=== PATIENT | male | born 1970 | race Caucasian/White ===

== ENCOUNTER 2016-08-25 16:10 | Emergency (ER) | payer OTHER ==
[~2016-08-25] VITALS: Ht 177.8 cm; Wt 118.9 kg
[~2016-08-25 16:10] MED LIST: BUDE10.2 IH; FOLI1TAB16 PO; IPRA3AMP NEB; OXYC-323 PO; PROAIR HFA8.5 GM INH; methotrexate
--- NOTE | 2016-08-25 16:15 | PHYS DOC ---
Past Medical History Past Medical History: Arthritis, Asthma Additional Past Medical Histor: RA Past Surgical History: Other Additional Past Surgical Histo: left shoulder Alcohol Use: None Drug Use: None Adult General Chief Complaint Chief Complaint: ASTHMA HPI HPI Patient is a 45 year old male who presents with patient. He states his symptoms started about an hour prior to arrival. He tried his nebulizer at home and felt worse. He denies any productive cough fevers chills nausea or vomiting. He states he is chronically on prednisone for his rheumatoid arthritis and about 2-3 times a year he takes a prednisone burst for his asthma. Review of Systems Review of Systems Constitutional: Denies fever or chills [] Eyes: Denies change in visual acuity, redness, or eye pain [] HENT: Denies nasal congestion or sore throat [] Respiratory: Denies cough, positive for shortness of breath and wheezing Cardiovascular: No additional information not addressed in HPI [] GI: Denies abdominal pain, nausea, vomiting, bloody stools or diarrhea [] : Denies dysuria or hematuria [] Musculoskeletal: Denies back pain or joint pain [] Integument: Denies rash or skin lesions [] Neurologic: Denies headache, focal weakness or sensory changes [] Endocrine: Denies polyuria or polydipsia [] Current Medications Current Medications Current Medications Medications (Trade) Dose Ordered Sig/Missy Start Time Stop Time Status Last Admin Dose Admin Albuterol Sulfate (Ventolin Neb Soln) 2.5 mg 1X ONCE 08/25/16 16:30 08/25/16 16:31 DC 08/25/16 16:32 2.5 MG Albuterol/ Ipratropium (Duoneb) 3 ml 1X ONCE 08/25/16 17:15 08/25/16 17:16 DC 08/25/16 17:42 3 ML Methylprednisolone Sodium Succinate (SOLU-Medrol 125MG VIAL) 125 mg 1X ONCE 08/25/16 16:30 08/25/16 16:31 DC 08/25/16 16:30 125 MG Allergies Allergies Allergies Coded Allergies Type Severity Reaction Last Updated Verified No Known Drug Allergies 11/12/13 No Physical Exam Physical Exam Constitutional: Well developed, well nourished, no acute distress, non-toxic appearance. [] HENT: Normocephalic, atraumatic, bilateral external ears normal, oropharynx moist, no oral exudates, nose normal. [] Eyes: PERRLA, EOMI, conjunctiva normal, no discharge. [] Neck: Normal range of motion, no tenderness, supple, no stridor. [] Cardiovascular:Heart rate regular rhythm, no murmur [] Lungs & Thorax: Bilateral breath sounds decreased with moderate expiratory wheezing Abdomen: Bowel sounds normal, soft, no tenderness, no masses, no pulsatile masses. [] Skin: Warm, dry, no erythema, no rash. [] Back: No tenderness, no CVA tenderness. [] Extremities: No tenderness, no cyanosis, no clubbing, ROM intact, no edema. [] Neurologic: Alert and oriented X 3, normal motor function, normal sensory function, no focal deficits noted. [] Psychologic: Affect normal, judgement normal, mood normal. [] Current Patient Data Vital Signs Vital Signs Date Time Temp Pulse Resp B/P (MAP) Pulse Ox O2 Delivery O2 Flow Rate FiO2 08/25/16 18:19 106 20 139/80 (99) 99 Room Air 08/25/16 16:26 98.3 98.3 EKG EKG [] Radiology/Procedures Radiology/Procedures Chest x-ray did not show any focal consolidations, pneumothorax, bony abnormalities or foreign bodies, as interpreted by me. Impressions: Asthma exacerbation Course & Med Decision Making Course & Med Decision Making Pertinent Labs and Imaging studies reviewed. (See chart for details) Presented with wheezing after 2 breathing treatments and 125 Solu-Medrol his breathing has improved substantially. He feels better. He is being discharged home with prednisone for 5 days. Return precautions given his agreeable plan and is in stable condition. Dragon Disclaimer Dragon Disclaimer This electronic medical record was generated, in whole or in part, using a voice recognition dictation system. Departure Departure Impression: Primary Impression: Asthma exacerbation Disposition: 01 HOME, SELF-CARE Condition: STABLE Referrals: NO PCP (PCP) Patient Instructions: Asthma, Adult Additional Instructions: You're seen for your asthma exacerbation. It got better with breathing treatments and steroids. Your being discharged with prednisone for the next 4 days. Use your inhaler as needed. Return ER for worsening breathing, shortness of breath, chest pain, fevers, productive cough or other concerns. Scripts Prednisone (PREDNISONE) 50 Mg Tablet 1 TAB PO DAILY, #5 TAB Prov: CINDY PADGETT MD 08/25/16 CINDY PADGETT MD Aug 25, 2016 16:15
[2016-08-25] MEDS ORDERED: methylPREDNISolone SOD SUCC PF 125 MG/2 ML VIAL. IV ONE (16:30)
[2016-08-25] MEDS ORDERED: ALBUTEROL SULFATE 2.5 MG/3 ML NEBU. NEB ONE (16:30)
[2016-08-25] MEDS ORDERED: IPRATRPIUM/ALBUTEROL 0.5/2.5MG 3 ML NEBU. NEB ONE (17:15)
[2016-08-25 18:50] VITALS: BP 146/83
[2016-08-25] MEDS ORDERED: PRED50TA PO (19:06)
--- NOTE | 2016-08-26 08:29 | RAD ---
Indication wheezing. Shortness of breath. A single view of the chest was obtained. Comparison is made to a study 11 months earlier. The heart and pulmonary vessels appear normal. The lungs are clear. There is no pleural fluid or pneumothorax. There has not been a significant change compared to the previous exam. IMPRESSION: No acute or focal process. No significant change
== END 2016-08-25 19:22 | disposition home or self-care (01) ==
LOC: ER 16:10
DX: J45.901 Unspecified asthma with (acute) exacerbation (principal); M19.90 Unspecified osteoarthritis, unspecified site
CPT/HCPCS: 71010; 94250; 94640; 96374; 99284; J2930; J7620

== ENCOUNTER 2019-10-05 09:41 | Emergency (ER) | payer SELFPAY ==
[~2019-10-05] VITALS: Ht 177.8 cm; Wt 100.0 kg
[~2019-10-05 09:41] MED LIST changes: +ALBU2.5V8 INH; -IPRA3AMP NEB; +IPRA3AMP29 NEB; -OXYC-323 PO; +OXYC1TAB15 PO; +PRED50TA PO; -PROAIR HFA8.5 GM INH
[2019-10-05 10:00] VITALS: BP 158/91
--- NOTE | 2019-10-05 10:38 | RAD ---
CHEST AP ONLY 10/05/2019 10:22 AM INDICATION: Cough, history of asthma COMPARISON: 08/25/2016 TECHNIQUE: Portable frontal view of the chest is provided. FINDINGS: The cardiomediastinal silhouette is within normal limits. Lungs are clear. There are no significant pleural effusions. There is no pulmonary vascular congestion. No pneumothorax. No suspicious osseous abnormality. IMPRESSION: There is no acute cardiopulmonary process. Electronically signed by: Farhana Bronson MD (10/05/2019 10:35 AM) [facility]
[2019-10-05] MEDS ORDERED: AZIT250T PO (11:47)
[2019-10-05] MEDS ORDERED: PRED20TA PO (11:47)
--- NOTE | 2019-10-05 11:47 | PHYS DOC ---
Past Medical History Past Medical History: Arthritis, Asthma Additional Past Medical Histor: RA Past Surgical History: Other Additional Past Surgical Histo: left shoulder, LEFT FOOT Smoking Status: Never Smoker Alcohol Use: None Drug Use: None General Adult EDM: Chief Complaint: ASTHMA HPI: HPI: Patient is a 49-year-old asthmatic who presents with a two-week history of cough congestion. He states he has been coughing up purulent appearing sputum. He does not smoke seems to be allergic in nature. He is been on steroids and nebulizers at home without relief. [] Review of Systems: Review of Systems: Constitutional: Subjective fever [] Eyes: Denies change in visual acuity. [] HENT: Denies nasal congestion or sore throat. [] Respiratory: Denies cough or shortness of breath. [] Cardiovascular: Denies chest pain or edema. [] GI: Denies abdominal pain, nausea, vomiting, bloody stools or diarrhea. [] : Denies dysuria. [] Musculoskeletal: Denies back pain or joint pain. [] Integument: Denies rash. [] Neurologic: Denies headache, focal weakness or sensory changes. [] Endocrine: Denies polyuria or polydipsia. [] Lymphatic: Denies swollen glands. [] Psychiatric: Denies depression or anxiety. [] Heart Score: Risk Factors: Risk Factors: DM, Current or recent (<one month) smoker, HTN, HLP, family his tory of CAD, obesity. Risk Scores: Score 0 - 3: 2.5% MACE over next 6 weeks - Discharge Home Score 4 - 6: 20.3% MACE over next 6 weeks - Admit for Clinical Observation Score 7 - 10: 72.7% MACE over next 6 weeks - Early Invasive Strategies Allergies: Allergies: Allergies Coded Allergies Type Severity Reaction Last Updated Verified No Known Drug Allergies 11/12/13 No Physical Exam: PE: Constitutional: Well developed, well nourished, no acute distress, non-toxic appearance. [] HENT: Normocephalic, atraumatic, bilateral external ears normal, oropharynx moist, no oral exudates, nose normal. [] Eyes: PERRLA, EOMI, conjunctiva normal, no discharge. [] Neck: Normal range of motion, no tenderness, supple, no stridor. [] Cardiovascular:Heart rate regular rhythm, no murmur [] Lungs & Thorax: Scattered wheezes throughout both lungs no rales [] Abdomen: Bowel sounds normal, soft, no tenderness, no masses, no pulsatile masses. [] Skin: Warm, dry, no erythema, no rash. [] Back: No tenderness, no CVA tenderness. [] Extremities: No tenderness, no cyanosis, no clubbing, ROM intact, no edema. [] Neurologic: Alert and oriented X 3, normal motor function, normal sensory func tion, no focal deficits noted. [] Psychologic: Affect normal, judgement normal, mood normal. [] Current Patient Data: Vital Signs: Vital Signs Date Time Temp Pulse Resp B/P (MAP) Pulse Ox O2 Delivery O2 Flow Rate FiO2 10/05/19 10:00 98.3 105 18 158/91 (113) 94 Room Air 98.3 EKG: EKG: [] Radiology/Procedures: Radiology/Procedures: [] Impression: REASON: cough, HX ASTHMA PROCEDURE: CHEST AP ONLY CHEST AP ONLY 10/05/2019 10:22 AM INDICATION: Cough, history of asthma COMPARISON: 08/25/2016 TECHNIQUE: Portable frontal view of the chest is provided. FINDINGS: The cardiomediastinal silhouette is within normal limits. Lungs are clear. There are no significant pleural effusions. There is no pulmonary vascular congestion. No pneumothorax. No suspicious osseous abnormality. IMPRESSION: There is no acute cardiopulmonary process. Course & Med Decision Making: Course & Med Decision Making Pertinent Labs and Imaging studies reviewed. (See chart for details) [] Dragon Disclaimer: Dragon Disclaimer: This electronic medical record was generated, in whole or in part, using a voice recognition dictation system. Departure Departure Impression: Primary Impression: Asthma exacerbation Qualified Codes: J45.51 - Severe persistent asthma with (acute) exacerbation Disposition: HOME, SELF-CARE Condition: STABLE Referrals: UNKNOWN PCP NAME (PCP) Patient Instructions: Acute Bronchitis, Bronchitis Additional Instructions: Return to the emergency department with any new or concerning symptoms Scripts Prednisone (PREDNISONE) 20 Mg Tablet 3 TAB PO DAILY PRN for COUGH for 7 Days, #21 TAB Prov: STEPHEN GREEN DO 10/05/19 Azithromycin (ZITHROMAX) 250 Mg Tablet 1 PKG PO UD for bronchitis, #6 TAB Take 2 tablets on day 1 and then 1 tablet each day for the next 4 days as directed Prov: STEPHEN GREEN DO 10/05/19 Justicifation of Admission Dx: Justifications for Admission: Justification of Admission Dx: No STEPHEN GREEN DO Oct 05, 2019 11:47
== END 2019-10-05 12:20 | disposition home or self-care (01) ==
LOC: ER 09:41
DX: J45.51 Severe persistent asthma with (acute) exacerbation (principal)
CPT/HCPCS: 71045; 99283

== ENCOUNTER 2019-10-23 22:13 | Emergency (ER) | payer SELFPAY ==
[~2019-10-23] VITALS: Ht 177.8 cm; Wt 118.1 kg
[~2019-10-23 22:13] MED LIST changes: +AZIT250T PO; +PRED20TA PO
--- NOTE | 2019-10-23 22:26 | PHYS DOC ---
Past Medical History Past Medical History: Arthritis, Asthma Additional Past Medical Histor: RA Past Surgical History: Other Additional Past Surgical Histo: left shoulder, LEFT FOOT Smoking Status: Never Smoker Alcohol Use: None Drug Use: None General Adult EDM: Chief Complaint: CHEST PAIN HPI: HPI: Patient is a 49 year old male who presents with complaints of chest pain. Patient reports that around noon today he began to have a sharp pain in the chest located left of center, nonradiating and intermittent. Patient reports the pain is sharp and and trains lasting a second or 2 and then returning after a brief hiatus. Patient also reports that he has been having troubles with his asthma. He reports an increase in cough, some mild chills today without any fever. Reports he is not short of breath, but does complain of some mild nausea without vomiting, he denies melena or hematochezia. Patient reports he has had his cough for 1 month denies any upper respiratory congestion, postnasal drip, or purulent nasal discharge. Review of Systems: Review of Systems: Constitutional: Denies fever or chills. [] Eyes: Denies change in visual acuity. [] HENT: Denies nasal congestion or sore throat. [] Respiratory: See HPI. [] Cardiovascular: See HPI. [] GI: Denies abdominal pain, nausea, vomiting, bloody stools or diarrhea. [] : Denies dysuria complains of urinary frequency. [] Musculoskeletal: Denies back pain or joint pain. [] Integument: Denies rash. [] Neurologic: Denies headache, focal weakness or sensory changes. [] Endocrine: Denies polyuria or polydipsia. [] Lymphatic: Denies swollen glands. [] Psychiatric: Denies depression or anxiety. [] Heart Score: HEART Score for Chest Pain: HEART Score for Chest Pain Response (Comments) Value History Slighlty/Non-Suspicious 0 ECG Normal 0 Age < 45 0 Risk Factors No Risk Factors 0 Troponin < Normal Limit 0 Total 0 Risk Factors: Risk Factors: DM, Current or recent (<one month) smoker, HTN, HLP, family history of CAD, obesity. Risk Scores: Score 0 - 3: 2.5% MACE over next 6 weeks - Discharge Home Score 4 - 6: 20.3% MACE over next 6 weeks - Admit for Clinical Observation Score 7 - 10: 72.7% MACE over next 6 weeks - Early Invasive Strategies Allergies: Allergies: Allergies Coded Allergies Type Severity Reaction Last Updated Verified No Known Drug Allergies 11/12/13 No Physical Exam: PE: Constitutional: Well developed, obese, well nourished, no acute distress, non- toxic appearance. [] HENT: Normocephalic, atraumatic, bilateral external ears normal, nasal mucosa with pale appearance without exudative changes, posterior oropharynx with eryt keyshawn and cobblestoning, moist mucous membranes. [] Eyes: PERRLA, EOMI, conjunctiva normal, no discharge. [] Neck: Normal range of motion, no tenderness, supple, no stridor. No JVD, no bruit [] Cardiovascular:Heart rate regular rhythm, no murmur [] Lungs & Thorax: Wheezing with forced expiration and a increase in expiratory time. Occasional wheeze noted bilaterally, no accessory muscle use, no respiratory distress no change to percussion [] Abdomen: Bowel sounds normal, soft, no tenderness, no masses, no pulsatile masses. [] Skin: Warm, dry, no erythema, no rash. [] Back: No tenderness, no CVA tenderness. [] Extremities: No tenderness, no cyanosis, no clubbing, ROM intact, no edema. [] Neurologic: Alert and oriented X 3, normal motor function, normal sensory function, no focal deficits noted. [] Psychologic: Affect normal, judgement normal, mood normal. [] EKG: EK bpm, normal sinus rhythm, normal axis, normal intervals, normal EKG [] Radiology/Procedures: Radiology/Procedures: Normal chest x-ray [] Course & Med Decision Making: Course & Med Decision Making Pertinent Labs and Imaging studies reviewed. (See chart for details) 0052-the patient was seen and reevaluated. I reviewed all laboratory and x-ray data with the patient. At this time there is no evidence of an exigent medical or surgical problem other than that of an asthma exacerbation. In addition I think he was suffering from noncardiac chest pain which may be related to GERD. Patient at this time is chest pain-free. I discussed treatment plan, reasons to return and need for follow-up. [] Dragon Disclaimer: Dragno Disclaimer: This electronic medical record was generated, in whole or in part, using a voice recognition dictation system. Departure Departure Impression: Primary Impression: Asthma exacerbation Qualified Codes: J45.21 - Mild intermittent asthma with (acute) exacerbation Additional Impression: Non-cardiac chest pain Disposition: HOME, SELF-CARE Condition: IMPROVED Referrals: UNKNOWN PCP NAME (PCP) Patient Instructions: Asthma, Adult Scripts Prednisone (PREDNISONE ) 10 Mg Tablet 10 MG PO DAILY, #30 TAB 0 Refills Ondansetron STD asthma exacerbation 4 pills daily for 3 days, then 3 pills daily for 3 days, then 2 pills daily for 3 days, then 1 pill daily for 3 days then off Prov: DALILA DUMONT MD 10/24/19 Justicifation of Admission Dx: Justifications for Admission: Justification of Admission Dx: No DALILA DUMONT MD Oct 23, 2019 22:26
[2019-10-23] MEDS ORDERED: ALBUTEROL SULFATE 2.5 MG/3 ML NEBU. CONT NEB ONE (23:00)
[2019-10-23] MEDS ORDERED: IPRATROPIUM BROMIDE 0.5 MG/2.5 ML NEBU. NEB ONE (23:00)
[2019-10-23] MEDS ORDERED: methylPREDNISolone SOD SUCC PF 125 MG/2 ML VIAL. IV ONE (23:00)
[2019-10-23] MEDS ORDERED: ALPRAZolam 0.5 MG TABLET PO ONE (23:00)
[2019-10-23 23:03] LABS: BASO # 0.1 x10^3/uL (0.0-0.2); BASO % 1 % (0-3); EOS # 0.4 x10^3/uL (0.0-0.7); EOS % 4 % (0-3); HEMATOCRIT 43.1 % (39.0-53.0); HEMOGLOBIN 14.6 g/dL (13.0-17.5); LYMPH # 1.8 x10^3/uL (1.0-4.8); LYMPH % 20 % (24-48); MEAN CORPUSCULAR HEMOGLOBIN 28 pg (25-35); MEAN CORPUSCULAR HGB CONC 34 g/dL (31-37); MEAN CORPUSCULAR VOLUME 84 fL (79-100); MONO # 0.5 x10^3/uL (0.0-1.1); MONO % 5 % (0-9); NEUT % 70 % (31-73); PLATELET COUNT 247 x10^3/uL (140-400); RED BLOOD COUNT 5.16 x10^6/uL (4.30-5.70); RED CELL DISTRIBUTION WIDTH 14.6 % (11.5-14.5); WHITE BLOOD COUNT 8.6 x10^3/uL (4.0-11.0)
[2019-10-23 23:09] LABS: CALCIUM 9.4 mg/dL (8.5-10.1); CREATININE 0.8 mg/dL (0.7-1.3); GFR 103.6; POTASSIUM 3.6 mmol/L (3.5-5.1)
[2019-10-23 23:10] LABS: PROTHROMBIN TIME PATIENT 12.1 SEC (11.7-14.0)
[2019-10-23 23:15] LABS: ALBUMIN 3.3 g/dL (3.4-5.0); ALBUMIN/GLOBULIN RATIO 0.8 (1.0-1.7); TOTAL BILIRUBIN 0.2 mg/dL (0.2-1.0); TOTAL PROTEIN 7.2 g/dL (6.4-8.2)
[2019-10-23 23:27] LABS: BILIRUBIN,URINE NEGATIVE (NEG); CLARITY,URINE CLEAR; COLOR,URINE YELLOW; NITRITE,URINE NEGATIVE (NEG); PROTEIN,URINE NEGATIVE (NEG-TRACE); UROBILINOGEN,URINE 0.2 mg/dL (0.2 mg/dL)
[2019-10-23 23:30] LABS: BACTERIA,URINE 0 /HPF (0-FEW); RBC,URINE 0 /HPF (0-2); WBC,URINE 0 /HPF (0-4)
--- NOTE | 2019-10-23 23:31 | RAD ---
Exam: Chest one view INDICATION: Cough TECHNIQUE: Frontal view of the chest Comparisons: 10/05/2019 FINDINGS: The cardiomediastinal silhouette and pulmonary vessels are within normal limits. The lung and pleural spaces are clear. IMPRESSION: No acute cardiopulmonary process. Electronically signed by: Alejandro Manley MD (10/23/2019 11:28 PM) [id number]
[2019-10-24] MEDS ORDERED: PRED-220 PO (00:59)
[2019-10-24 01:30] VITALS: BP 152/89
--- NOTE | 2019-10-24 09:27 | EKG ---
[facility] [address] [place] [address] Test Date: 2019-10-23 Test Time: 22:19:34 Pat Name: ANTONY FERREIRA Department: Room: Gender: M Environmental Health Specialist: : 1970 Requested By: DALILA DUMONT Order Number: [id number] Reading MD: Measurements Intervals [place] Rate: 89 P: 40 [place]: 134 QRS: 46 QRSD: 78 T: 28 QT: 350 QTc: 427 Interpretive Statements SINUS RHYTHM NO SPECIFIC ECG ABNORMALITIES RI6.01 No previous ECG available for comparison
== END 2019-10-24 01:34 | disposition home or self-care (01) ==
LOC: ER 22:13
DX: J45.21 Mild intermittent asthma with (acute) exacerbation (principal); R07.89 Other chest pain; R05 Cough; R11.0 Nausea; M19.90 Unspecified osteoarthritis, unspecified site; J45.909 Unspecified asthma, uncomplicated; Z98.890 Other specified postprocedural states
CPT/HCPCS: 36415; 71045; 80053; 81001; 84484; 85025; 85610; 93005; 94644; 96374; 99285; J2930; J7613; J7644

== ENCOUNTER 2020-07-19 17:56 | Emergency (ER) | payer SELFPAY ==
[~2020-07-19] VITALS: Ht 177.8 cm; Wt 113.0 kg
[~2020-07-19 17:56] MED LIST changes: +PRED-220 PO
[2020-07-19] MEDS ORDERED: methylPREDNISolone SOD SUCC PF 125 MG/2 ML VIAL. IV ONE (19:30)
[2020-07-19] MEDS ORDERED: ALBUTEROL SULFATE 2.5 MG/3 ML NEBU. NEB ONE (19:30)
--- NOTE | 2020-07-19 19:35 | EKG ---
[facility] [address] [place] [address] Test Date: 2020-07-19 Test Time: 19:06:52 Pat Name: ANTONY FERREIRA Department: Room: Gender: M Director State Pharmacy: : 1970 Requested By: NANDO JHAVERI Order Number: [id number] Reading MD: Measurements Intervals [place] Rate: 86 P: 52 [place]: 154 QRS: 52 QRSD: 82 T: 26 QT: 346 QTc: 417 Interpretive Statements SINUS RHYTHM OTHERWISE NORMAL ECG RI6.02 No previous ECG available for comparison
--- NOTE | 2020-07-19 19:50 | PHYS DOC ---
Past Medical History Past Medical History: Anxiety, Arthritis, Asthma, Bronchitis Additional Past Medical Histor: RA (NANDO JHAVERI CAST IRON DIPPER) Past Surgical History: Other Additional Past Surgical Histo: left shoulder, LEFT FOOT (NANDO JHAVERI CAST IRON DIPPER) Smoking Status: Never Smoker Alcohol Use: None Drug Use: None (NANDO JHAVERI CAST IRON DIPPER) General Adult EDM: Chief Complaint: ASTHMA HPI: HPI: Patient is a 49 year old male who presents with 2 days of fever, generalized weakness, fatigue, shortness of breath and generalized chest pain or chest pressure. He states he does have asthma and he has been using his inhalers that he thinks his nebulizers are outdated. He states is not really working. States he has been laying in bed and sleeping a lot. He states he does not think he has been around any biopsies been sick that he knows of. He states that he will get a fever and then will break and he will break out into a sweat. Patient denies dizziness, syncope, headache, vision change, numbness or tingling, focal weakness, abdominal pain, vomiting, diarrhea although he said he had diarrhea a couple days prior to today. Patient has history of asthma, anxiety, arthritis, bronchitis. Patient denies smoking. (NANDO JHAVERI CAST IRON DIPPER) Review of Systems: Review of Systems: Constitutional: + fever or chills. [] Eyes: Denies change in visual acuity. [] HENT: Denies nasal congestion or sore throat. [] Respiratory: + cough or +shortness of breath. [] Cardiovascular: + chest pain or denies edema. [] GI: Denies abdominal pain, nausea, vomiting, bloody stools or diarrhea. [] : Denies dysuria. [] Musculoskeletal: Denies back pain or joint pain. +generalized weakness and + fatigue[] Integument: Denies rash. [] Neurologic: Denies headache, focal weakness or sensory changes. [] Endocrine: Denies polyuria or polydipsia. [] Lymphatic: Denies swollen glands. [] Psychiatric: Denies depression or anxiety. [] (NANDO JHAVERI CAST IRON DIPPER) Heart Score: C/O Chest Pain: Yes HEART Score for Chest Pain: HEART Score for Chest Pain Response (Comments) Value History Slighlty/Non-Suspicious 0 ECG Normal 0 Age >45 - < 65 1 Risk Factors 1 or 2 Risk Factors 1 Troponin < Normal Limit 0 Total 2 Risk Factors: Risk Factors: DM, Current or recent (<one month) smoker, HTN, HLP, family history of CAD, obesity. Risk Scores: Score 0 - 3: 2.5% MACE over next 6 weeks - Discharge Home Score 4 - 6: 20.3% MACE over next 6 weeks - Admit for Clinical Observation Score 7 - 10: 72.7% MACE over next 6 weeks - Early Invasive Strategies (NANDO JHAVERI APRN) Current Medications: Current Medications Medications (Trade) Dose Ordered Sig/Missy Start Time Stop Time Status Last Admin Dose Admin Albuterol Sulfate (Ventolin Neb Soln) 2.5 mg 1X ONCE 07/19/20 19:30 07/19/20 19:31 DC Methylprednisolone Sodium Succinate (SOLU-Medrol 125MG VIAL) 125 mg 1X ONCE 07/19/20 19:30 07/19/20 19:31 DC (NANDO JHAVERI APRN) Allergies: Allergies: Allergies Coded Allergies Type Severity Reaction Last Updated Verified No Known Drug Allergies 11/12/13 No (NANDO JHAVERI APRN) Physical Exam: PE: Constitutional: Well developed, well nourished, no acute distress, non-toxic appearance. [] HENT: Normocephalic, atraumatic, bilateral external ears normal, oropharynx moist, no oral exudates, nose normal. [] Eyes: PERRLA, EOMI, conjunctiva normal, no discharge. [] Neck: Normal range of motion, no tenderness, supple, no stridor. [] Cardiovascular:Heart rate regular rhythm, no murmur [] Lungs & Thorax: Bilateral breath sounds upper clear but lower wheezing to auscultation [] Abdomen: Bowel sounds normal, soft, no tenderness, no masses, no pulsatile masses. [] Skin: Warm, dry, no erythema, no rash. [] Back: No tenderness, no CVA tenderness. [] Extremities: No tenderness, no cyanosis, no clubbing, ROM intact, no edema. [] Neurologic: Alert and oriented X 3, normal motor function, normal sensory function, no focal deficits noted. [] Psychologic: Affect normal, judgement normal, mood normal. [] (NANDO JHAVERI APRN) Current Patient Data: Vital Signs: Vital Signs Date Time Temp Pulse Resp B/P (MAP) Pulse Ox O2 Delivery O2 Flow Rate FiO2 07/19/20 18:58 96 22 169/87 (114) 96 Room Air 07/19/20 18:46 98.4 98.4 ([facility]) EKG: EK and read by Dr Weathers as Sinus Rhythm and no STEMI ([facility]) Radiology/Procedures: Radiology/Procedures: [] Impression: [address] [address] IMAGING REPORT Signed PATIENT: ANTONY FERREIRACOUNT: [id number] : 1970 LOCATION: ER AGE: 49 SEX: M EXAM STATUS: REG ER ORD. PHYSICIAN: NANDO JHAVERI APRN REASON: SOA PROCEDURE: PORTABLE CHEST 1V Exam: Chest one view INDICATION: Short of air TECHNIQUE: Frontal view of the chest Comparisons: 11/12/2019 FINDINGS: The cardiomediastinal silhouette and pulmonary vessels are within normal limits. The lung and pleural spaces are clear. IMPRESSION: No acute cardiopulmonary process. Electronically signed by: Alejandro Richards MD (07/19/2020 7:50 PM) [facility] DICTATED and SIGNED BY: ALEJANDRO RICHARDS MD DATE: 07/19/20 [id number] [address] IMAGING REPORT Signed PATIENT: ANTONY FERREIRA JACCOUNT: [id number] : 1970 LOCATION: ER AGE: 49 SEX: M EXAM STATUS: REG ER ORD. PHYSICIAN: NANDO JHAVERI APRN REASON: pain, vomiting, chest pain, soa, OMNI 350 100 ML IV PROCEDURE: CT ANGIO CHEST W ABD PEL W/ Exam: CT of chest, abdomen and pelvis with contrast INDICATION: Pain, vomiting TECHNIQUE: Sequential axial images through the chest, abdomen and pelvis obtained following the administration 100 mL of Omni 350 IV contrast. Sagittal and coronal reformatted images were reconstructed from the axial data and reviewed. 3-D reformatted images were reconstructed from the axial data and reviewed. Exposure: One or more of the following in the visualized dose reduction techniques were utilized for this examination: 1. Automated exposure control 2. Adjustment of the MA and/or KV according to patient size 3. Use of iterative of reconstructive technique Comparisons: Chest x-ray same day FINDINGS: Visualized portions of the thyroid are unremarkable. No enlarged mediastinal lymph nodes are identified. Heart size is normal. No pericardial effusion. Mild coronary artery calcification. Thoracic aorta has a normal course and caliber. Pulmonary artery is not enlarged. No pulmonary embolus identified within the main, lobar or segmental pulmonary arteries. Airways are patent. No consolidation or pneumothorax. No suspicious lung nodules. No pleural effusion or thickening. Diffuse hepatic steatosis. Spleen, pancreas, gallbladder and adrenals are unremarkable. No perinephric inflammation or hydronephrosis. No renal or ureteral calculi are identified. Bladder is partially distended and appears thin-walled. Prostate is not enlarged. Large and small bowel are unremarkable. Appendix is normal. No free intra- abdominal air or fluid. No obstruction. Abdominal aorta has a normal course and caliber. Abdominal vasculature is patent. No enlarged intra-abdominal lymph nodes are identified. No suspicious osseous lesions or acute fractures. IMPRESSION: 1. No acute process identified within the abdomen or pelvis. 2. Diffuse hepatic steatosis. 3. No pulmonary embolus identified within the main, lobar or segmental pulmonary arteries. Electronically signed by: Alejandro Richards MD (07/19/2020 10:02 PM) [facility] DICTATED and SIGNED BY: ALEJANDRO RICHARDS MD DATE: 07/19/20 [id number] (NANDO JHAVERI APRN) Course & Med Decision Making: Course & Med Decision Making Pertinent Labs and Imaging studies reviewed. (See chart for details) COVID-19 CRITERIA: The patient was evaluated during the global COVID-19 pandemic, and that diagnosis was suspected/considered upon their initial presentation. Their evaluation, treatment and testing was consistent with current guidelines for patients who present with complaints or symptoms that may be related to COVID-19. See HPI. Alert and oriented x4. Ambulatory with a steady gait. Speaks in full clear sentences. Lungs and upper lobes are clear but in lower lobes bilaterally are diminished and have some wheezes. Abdomen is soft and nontender. Afebrile in the ED. No respiratory distress. Blood work is unremarkable. CT abdomen pelvis and chest show no acute findings. Urinalysis shows no infection or dehydration. Patient is p.o. challenge successfully. Patient after reassessment still has no abdominal tenderness and abdomen is still soft. He still denies any dizziness, headache, abdominal pain or nausea at this time. Patient states that he is doing a lot better and his chest is no longer tight. He states he is breathing easier. Patient remains 96 to 98% on room air. Respirations are 18 a minute. Patient is moving air better with reassessment. Patient is tolerating p.o. Patient states he is wanting to go home. Patient still has some inspiratory expiratory wheezing. I will give him 1 more breathing treatment prior to leaving. [] (NANDO JHAVERI APRN) Course & Med Decision Making I oversaw on the above date of service of this patient and discussed the care with the ORDER DISPATCHER. I agree with the findings, plan of care, and disposition as documented. Electronically signed, Jossue Weathers DO (JOSSUE WEATHERS DO) Juan Disclaimer: Juan Disclaimer: This electronic medical record was generated, in whole or in part, using a voice recognition dictation system. (NANDO JHAVERI APRN) Departure Departure Impression: Primary Impression: Asthma exacerbation Qualified Codes: J45.21 - Mild intermittent asthma with (acute) exacerbation Additional Impression: Person under investigation for COVID-19 Disposition: HOME / SELF CARE / HOMELESS Condition: STABLE Referrals: UNKNOWN PCP NAME (PCP) Patient Instructions: Asthma, Adult Additional Instructions: Follow-up with your primary care provider since hospital. Near the Covid test will come back in 24 to 48 hours. Use your inhalers and your nebulizers. If at any point he felt like they are not working any return to the emergency room. Take Tylenol for any kind of fever. Rest but make sure you are pushing fluids to stay hydrated. Scripts Albuterol Sulfate (ALBUTEROL SULFATE NEB SOLN) 2.5 Mg/3 Ml Vial.neb 1 VIAL NEB PRN Q4HRS, #50 VIAL Prov: NANDO JHAVERI APRN 07/19/20 Albuterol Sulfate (PROAIR HFA INHALER) 8.5 Gm Hfa.aer.ad 2 PUFF IH PRN Q4-6HRS PRN for wheezing for 21 Days, #1 INHALER 0 Refills Prov: NANDO JHAVERI APRN 07/19/20 Methylprednisolone (MEDROL) 4 Mg Tab.ds.pk 1 PKG PO UD, #1 PKG Prov: NANDO JHAVERI APRN 07/19/20 NANDO JHAVERI APRN July 19, 2020 19:50 JOSSUE WEATHERS DO July 22, 2020 18:51
--- NOTE | 2020-07-19 19:53 | RAD ---
Exam: Chest one view INDICATION: Short of air TECHNIQUE: Frontal view of the chest Comparisons: 11/12/2019 FINDINGS: The cardiomediastinal silhouette and pulmonary vessels are within normal limits. The lung and pleural spaces are clear. IMPRESSION: No acute cardiopulmonary process. Electronically signed by: Alejandro Manley MD (07/19/2020 7:50 PM) [facility]
[2020-07-19 19:55] LABS: BASO # 0.1 x10^3/uL (0.0-0.2); BASO % 1 % (0-3); EOS # 0.2 x10^3/uL (0.0-0.7); EOS % 2 % (0-3); HEMATOCRIT 46.8 % (39.0-53.0); HEMOGLOBIN 16.2 g/dL (13.0-17.5); LYMPH % 19 % (24-48); MEAN CORPUSCULAR HEMOGLOBIN 29 pg (25-35); MEAN CORPUSCULAR HGB CONC 35 g/dL (31-37); MEAN CORPUSCULAR VOLUME 84 fL (79-100); MONO # 0.8 x10^3/uL (0.0-1.1); MONO % 7 % (0-9); NEUT # 7.7 x10^3/uL (1.8-7.7); NEUT % 71 % (31-73); PLATELET COUNT 325 x10^3/uL (140-400); RED BLOOD COUNT 5.58 x10^6/uL (4.30-5.70); RED CELL DISTRIBUTION WIDTH 13.9 % (11.5-14.5); WHITE BLOOD COUNT 10.9 x10^3/uL (4.0-11.0)
[2020-07-19] MEDS ORDERED: ONDANSETRON PF 4 MG/2 ML VIAL. IVP ONE (20:00)
[2020-07-19] MEDS ORDERED: IV NORMAL SALINE 1000ML BAG 1,000 ML IV ONE (20:00)
[2020-07-19 20:34] LABS: CALCIUM 9.3 mg/dL (8.5-10.1); CREATININE 0.9 mg/dL (0.7-1.3); GFR 90.4; POTASSIUM 4.3 mmol/L (3.5-5.1)
[2020-07-19 20:39] LABS: ALBUMIN 4.3 g/dL (3.4-5.0); ALBUMIN/GLOBULIN RATIO 1.3 (1.0-1.7); TOTAL BILIRUBIN 0.2 mg/dL (0.2-1.0); TOTAL PROTEIN 7.7 g/dL (6.4-8.2)
[2020-07-19 21:13] LABS: PROTHROMBIN TIME PATIENT 12.7 SEC (11.7-14.0)
[2020-07-19] MEDS ORDERED: CONTRAST GIVEN. MC PRN (21:30)
[2020-07-19] MEDS ORDERED: IOHEXOL 350 MG/ML 100 ML VIAL. IV ONE (21:30)
[2020-07-19 21:55] LABS: BILIRUBIN,URINE NEGATIVE (NEG); CLARITY,URINE CLEAR; COLOR,URINE YELLOW; NITRITE,URINE NEGATIVE (NEG); PROTEIN,URINE NEGATIVE (NEG-TRACE); UROBILINOGEN,URINE 0.2 mg/dL (0.2 mg/dL)
--- NOTE | 2020-07-19 22:04 | RAD ---
Exam: CT of chest, abdomen and pelvis with contrast INDICATION: Pain, vomiting TECHNIQUE: Sequential axial images through the chest, abdomen and pelvis obtained following the admin istration 100 mL of Omni 350 IV contrast. Sagittal and coronal reformatted images were reconstructed from the axial data and reviewed. 3-D reformatted images were reconstructed from the axial data and r eviewed. Exposure: One or more of the following in the visualized dose reduction techniques were utilized for this examination: 1. Automated exposure control 2. Adjustment of the MA and/or KV according to patient size 3. Use of iterative of reconstructive technique Comparisons: Chest x-ray same day FINDINGS: Visualized portions of the thyroid are unremarkable. No enlarged mediastinal lymph nodes are identifi ed. Heart size is normal. No pericardial effusion. Mild coronary artery calcification. Thoracic aorta has a normal course and caliber. Pulmonary artery is not enlarged. No pulmonary embolus identified withi n the main, lobar or segmental pulmonary arteries. Airways are patent. No consolidation or pneumothorax. No suspicious lung nodules. No pleural effusion or thickening. Diffuse hepatic steatosis. Spleen, pancreas, gallbladder and adrenals are unremarkable. No perinephric inflammation or hydronephrosis. No renal or ureteral calculi are identified. Bladder is partially distended and appears thin-walled. Prostate is not enlarged. Large and small bowel are unremarkable. Appendix is normal. No free intra-abdominal air or fluid. No obstruction. Abdominal aorta has a normal course and caliber. Abdominal vasculature is patent. No enlarged intra-abdominal lymph nodes are identified. No suspicious osseous lesions or acute fractures. IMPRESSION: 1. No acute process identified within the abdomen or pelvis. 2. Diffuse hepatic steatosis. 3. No pulmonary embolus identified within the main, lobar or segmental pulmonary arteries. Electronically signed by: Alejandro Manley MD (07/19/2020 10:02 PM) [facility]
[2020-07-19 22:05] LABS: BACTERIA,URINE 0 /HPF (0-FEW); RBC,URINE 0 /HPF (0-2); WBC,URINE 0 /HPF (0-4)
[2020-07-19] MEDS ORDERED: ALBU2.5V5 NEB (22:22)
[2020-07-19] MEDS ORDERED: ALBU2.5V8 IH (22:22)
[2020-07-19] MEDS ORDERED: METH4TAB2 PO (22:22)
[2020-07-19 22:26] VITALS: BP 157/81
--- NOTE | 2020-07-20 13:29 | NUR ---
IP: Informed pt of negative COVID test. Pt verbalized understanding.
== END 2020-07-19 23:00 | disposition home or self-care (01) ==
LOC: ER 17:56
DX: J45.21 Mild intermittent asthma with (acute) exacerbation (principal); Z20.822 Contact with and (suspected) exposure to COVID-19
CPT/HCPCS: 36415; 71045; 71275; 74177; 80053; 81001; 83605; 83880; 84484; 85025; 85379; 85610; 93005; 94640; 96361; 96374; 96375; 99285; J2405; J2930; J7030; J7613; Q9967; U0003; U0005

== ENCOUNTER 2021-01-22 10:46 | Emergency (ER) | payer SELFPAY ==
[~2021-01-22] VITALS: Ht 175.3 cm; Wt 84.0 kg
[~2021-01-22 10:46] MED LIST changes: +ALBU2.5V5 NEB; +ALBU2.5V8 IH; +METH4TAB2 PO
--- NOTE | 2021-01-22 11:55 | PHYS DOC ---
Past Medical History Past Medical History: Anxiety, Arthritis, Asthma, Bronchitis Additional Past Medical Histor: RA (NANDO JHAVERI APRN) Past Surgical History: No Surgical History Additional Past Surgical Histo: left shoulder, LEFT FOOT (NANDO JHAVERI APRN) Smoking Status: Never Smoker Alcohol Use: None Drug Use: None (NANDO JHAVERI APRN) General Adult EDM: Chief Complaint: SHORTNESS OF BREATH HPI: HPI: Patient is a 50 year old female who presents with 2 days of shortness of air, cough, chills. He states is been using his inhaler more often than usual. Not vaccinated for Covid. History of asthma, bronchitis, anxiety and RA. He states he is having body aches but he always has body aches because of his RA. Denies headache, dizziness, chest pain, abdominal pain, nausea, vomiting, diarrhea, numbness or tingling. (NANDO JHAVERI APRN) Review of Systems: Review of Systems: Constitutional: Denies fever or +chills. [] Eyes: Denies change in visual acuity. [] HENT: Denies nasal congestion or sore throat. [] Respiratory: + cough or +shortness of breath. [] Cardiovascular: Denies chest pain or edema. [] GI: Denies abdominal pain, nausea, vomiting, bloody stools or diarrhea. [] : Denies dysuria. [] Musculoskeletal: Denies back pain or joint pain. + Body aches [] Integument: Denies rash. [] Neurologic: Denies headache, focal weakness or sensory changes. [] Endocrine: Denies polyuria or polydipsia. [] Lymphatic: Denies swollen glands. [] Psychiatric: Denies depression or anxiety. [] (NANDO JHAVERI APRN) Heart Score: C/O Chest Pain: No (NANDO JHAVERI APRN) Current Medications: Current Medications Medications (Trade) Dose Ordered Sig/Missy Start Time Stop Time Status Last Admin Dose Admin Albuterol Sulfate (Ventolin Neb Soln) 2.5 mg 1X ONCE 01/22/21 12:00 01/22/21 12:01 Methylprednisolone Sodium Succinate (SOLU-Medrol 125MG VIAL) 80 mg 1X ONCE 01/22/21 12:00 01/22/21 12:01 (NANDO JHAVERI HAND COKE DRAWER) Allergies: Allergies: Allergies Coded Allergies Type Severity Reaction Last Updated Verified No Known Drug Allergies 01/22/21 No (NANDO JHAVERI APRN) Physical Exam: PE: Constitutional: Well developed, well nourished, no acute distress, non-toxic appearance. [] HENT: Normocephalic, atraumatic, bilateral external ears normal, oropharynx moist, no oral exudates, nose normal. [] Eyes: PERRLA, EOMI, conjunctiva normal, no discharge. [] Neck: Normal range of motion, no tenderness, supple, no stridor. [] Cardiovascular:Heart rate regular rhythm, no murmur [] Lungs & Thorax: Bilateral upper breath sounds clear lower diminished to auscultation [] Abdomen: Bowel sounds normal, soft, no tenderness, no masses, no pulsatile masses. [] Skin: Warm, dry, no erythema, no rash. [] Back: No tenderness, no CVA tenderness. [] Extremities: No tenderness, no cyanosis, no clubbing, ROM intact, no edema. [] Neurologic: Alert and oriented X 3, normal motor function, normal sensory function, no focal deficits noted. [] Psychologic: Affect normal, judgement normal, mood normal. [] ([facility]RAW[facility]) Current Patient Data: Vital Signs: Vital Signs Date Time Temp Pulse Resp B/P (MAP) Pulse Ox O2 Delivery O2 Flow Rate FiO2 01/22/21 11:25 98.1 86 24 153/99 (117) Room Air 98.1 ([facility] HAND COKE DRAW[facility]) EKG: EK and read by Dr. Gant is sinus rhythm and no STEMI [address] Gant is sinus rhythm and no STEMI ([facility] HAND COKE DRAWER) Radiology/Procedures: Radiology/Procedures: [] Impression: [facility] [address] [place] [address] IMAGING REPORT Signed PATIENT: ANTONY FERREIRA JACCOUNT: [id number] : 1970 LOCATION: ER AGE: 50 SEX: M EXAM STATUS: REG ER ORD. PHYSICIAN: NANDO JHAVERI APRN REASON: SOA, COUGH PROCEDURE: PORTABLE CHEST 1V Exam Date: 01/22/2021 11:40 AM XR CHEST 1V Indication: Reason: SOA, COUGH / Spl. Instructions: / History: . Comparison: July 19, 2020 FINDINGS/ IMPRESSION: The cardiac silhouette and pulmonary vasculature are within normal limits. There is no focal consolidation, pleural effusion or pneumothorax. The visualized osseous structures are intact. Electronically signed by: Laury Pal MD (01/22/2021 11:58 AM) [id number] DICTATED and SIGNED BY: LAURY PAL MD DATE: 01/22/21 [id number] (NANDO JHAVERI APRN) Course & Med Decision Making: Course & Med Decision Making Pertinent Labs and Imaging studies reviewed. (See chart for details) COVID-19 CRITERIA: The patient was evaluated during the global COVID-19 pandemic, and that diagnosis was suspected/considered upon their initial presentation. Their evaluation, treatment and testing was consistent with current guidelines for patients who present with complaints or symptoms that may be related to COVID-19. See HPI. Alert and oriented x4. Ambulatory steady gait. Speaks in full clear sentences. Lungs are clear in upper lobes with diminished in lower lobes. Skin pink warm and dry. Patient was given Solu-Medrol and a breathing treatment. Patient's lungs are now inspiratory/ expiratory wheezes and he is moving air better. Patient still states he is feeling short of air. I have now ordered him a hour-long breathing treatment. Patient is feeling much better after the hour-long breathing treatment. His lungs are clear and the wheezes have resolved. Patient will be discharged home. [] (NANDO JHAVERI APRN) Course & Med Decision Making I have participated in the care of this patient and I have reviewed and agree with all pertinent clinical information above including history, exam, and recommendations. Jules Gant DO (JULES GANT DO) Juan Disclaimer: Juan Disclaimer: This electronic medical record was generated, in whole or in part, using a voice recognition dictation system. (NANDO JHAVERI APRN) COVID-19 Patient Risks: Age 65 or older: No Sign of co-morbidity: Yes Exp to person + for COVID: No Exp to PUI: No Travel from affected area: No Lower respiratory symptoms: Yes Fever: Yes Other: No (NANDO JHAVERI APRN) PPE Use: Full PPE with N95 mask or PAPR: Yes (NANDO JHAVERI APRN) Departure Departure Impression: Primary Impression: Asthma exacerbation Qualified Codes: J45.21 - Mild intermittent asthma with (acute) exacerbation Disposition: HOME / SELF CARE / HOMELESS Condition: STABLE Referrals: UNKNOWN PCP NAME (PCP) Patient Instructions: Asthma, Adult Additional Instructions: Follow-up with primary care provider if needed. Take medication as prescribed. If anything worsens return to the emergency room. Scripts Ipratropium/Albuterol Sulfate (DUONEB 0.5-3(2.5) MG/3 ML) 3 Ml Ampul.neb 3 ML NEB QID PRN for SHORTNESS OF BREATH, #30 EACH Prov: NANDO JHAVERI APRN 01/22/21 Methylprednisolone (MEDROL) 4 Mg Tab.ds.pk 1 PKG PO UD, #1 PKG Prov: NANDO JHAVERI APRN 01/22/21 Albuterol Sulfate (PROAIR HFA INHALER) 8.5 Gm Hfa.aer.ad 1 PUFF INH PRN Q6HRS PRN for SHORTNESS OF BREATH, #1 EACH 0 Refills Prov: NANDO JHAVERI APRN 01/22/21 NANDO JHAVERI APRN Jan 22, 2021 11:55 JULES GANT DO Jan 22, 2021 18:07
[2021-01-22] MEDS ORDERED: methylPREDNISolone SOD SUCC PF 125 MG/2 ML VIAL. IV ONE (12:00)
[2021-01-22] MEDS ORDERED: ALBUTEROL SULFATE 2.5 MG/3 ML NEBU. NEB ONE (12:00)
--- NOTE | 2021-01-22 12:00 | RAD ---
Exam Date: 01/22/2021 11:40 AM XR CHEST 1V Indication: Reason: SOA, COUGH / Spl. Instructions: / History: . Comparison: July 19, 2020 FINDINGS/ IMPRESSION: The cardiac silhouette and pulmonary vasculature are within normal limits. There is no focal consolidation, pleural effusion or pneumothorax. The visualized osseous structures are intact. Electronically signed by: Johny Pal MD (01/22/2021 11:58 AM) [id number]
[2021-01-22 12:15] LABS: BASO # 0.1 x10^3/uL (0.0-0.2); BASO % 1 % (0-3); EOS # 0.2 x10^3/uL (0.0-0.7); EOS % 2 % (0-3); HEMATOCRIT 44.2 % (39.0-53.0); HEMOGLOBIN 15.2 g/dL (13.0-17.5); LYMPH # 2.1 x10^3/uL (1.0-4.8); LYMPH % 18 % (24-48); MEAN CORPUSCULAR HEMOGLOBIN 28 pg (25-35); MEAN CORPUSCULAR HGB CONC 34 g/dL (31-37); MEAN CORPUSCULAR VOLUME 81 fL (79-100); MONO # 0.7 x10^3/uL (0.0-1.1); MONO % 6 % (0-9); NEUT # 8.3 x10^3/uL (1.8-7.7); NEUT % 73 % (31-73); PLATELET COUNT 364 x10^3/uL (140-400); RED BLOOD COUNT 5.47 x10^6/uL (4.30-5.70); RED CELL DISTRIBUTION WIDTH 13.4 % (11.5-14.5); WHITE BLOOD COUNT 11.4 x10^3/uL (4.0-11.0)
[2021-01-22 12:20] LABS: INFLUENZA A PATIENT NEGATIVE (NEGATIVE); INFLUENZA B PATIENT NEGATIVE (NEGATIVE)
[2021-01-22 12:26] LABS: CREATININE 0.8 mg/dL (0.7-1.3); GFR 103.2; POTASSIUM 3.9 mmol/L (3.5-5.1)
[2021-01-22 12:32] LABS: ALBUMIN 3.7 g/dL (3.4-5.0); ALBUMIN/GLOBULIN RATIO 0.8 (1.0-1.7); MAGNESIUM 2.2 mg/dL (1.8-2.4); TOTAL BILIRUBIN 0.2 mg/dL (0.2-1.0); TOTAL PROTEIN 8.3 g/dL (6.4-8.2)
[2021-01-22 12:41] LABS: BILIRUBIN,URINE NEGATIVE (NEG); CLARITY,URINE CLEAR; COLOR,URINE YELLOW; NITRITE,URINE NEGATIVE (NEG); PROTEIN,URINE NEGATIVE (NEG-TRACE); UROBILINOGEN,URINE 0.2 mg/dL (0.2 mg/dL)
[2021-01-22 12:56] LABS: BACTERIA,URINE 0 /HPF (0-FEW); RBC,URINE 0 /HPF (0-2); WBC,URINE 0 /HPF (0-4)
[2021-01-22] MEDS ORDERED: ALBUTEROL SULFATE 2.5 MG/3 ML NEBU. CONT NEB ONE (13:00)
[2021-01-22] MEDS ORDERED: ALBU2.5V8 INH (14:44)
[2021-01-22] MEDS ORDERED: IPRA3AMP29 NEB (14:44)
[2021-01-22] MEDS ORDERED: METH4TAB2 PO (14:44)
[2021-01-22 15:26] VITALS: BP 144/26
--- NOTE | 2021-01-22 18:06 | EKG ---
[facility] [address] [place] [address] Test Date: 2021-01-22 Test Time: 11:34:36 Pat Name: ANTONY FERREIRA Department: Room: Gender: M [employer] Ax Consultant: : 1970 Requested By: NANDO JHAVERI Order Number: [id number] Reading MD: Dylan Fish Measurements Intervals [place] Rate: 88 P: 59 [place]: 154 QRS: 50 QRSD: 80 T: 48 QT: 368 QTc: 449 Interpretive Statements SINUS RHYTHM OTHERWISE NORMAL ECG RI6.02 Compared to ECG 07/19/2020 19:06:52 No significant changes Electronically Signed On 01-25-2021 9:38:03 REHAB MANAGER by Dylan Fish
--- NOTE | 2021-01-23 01:51 | EKG ---
[facility] [address] [place] [address] Test Date: 2021-01-22 Test Time: 12:04:18 Pat Name: ANTONY FERREIRA Department: Room: Gender: M [employer] Tender: : 1970 Requested By: NANDO JHAVERI Order Number: [id number] Reading MD: Dylan Fish Measurements Intervals [place] Rate: 94 P: 90 [place]: 152 QRS: 50 QRSD: 80 T: 31 QT: 346 QTc: 438 Interpretive Statements SINUS RHYTHM NO SPECIFIC ECG ABNORMALITIES RI6.01 Compared to ECG 01/22/2021 11:34:36 No significant changes Electronically Signed On 01-25-2021 9:37:35 DAIRY [employer] FARM MANAGER by Dylan Fish
--- NOTE | 2021-01-25 11:35 | NUR ---
IP: Informed pt of negative covid test. Pt verbalized understanding.
== END 2021-01-22 15:26 | disposition home or self-care (01) ==
LOC: ER 10:46
DX: J45.21 Mild intermittent asthma with (acute) exacerbation (principal); Z20.822 Contact with and (suspected) exposure to COVID-19
CPT/HCPCS: 36415; 71045; 80053; 81001; 83735; 84484; 85025; 87426; 87804; 93005; 94640; 94644; 96374; 99285; J2930; J7613; U0003; U0005

== ENCOUNTER 2021-03-29 06:02 | Emergency (ER) | payer SELFPAY ==
[~2021-03-29] VITALS: Ht 177.8 cm; Wt 113.5 kg
--- NOTE | 2021-03-29 06:14 | PHYS DOC ---
Past Medical History Past Medical History: Anxiety, Arthritis, Asthma, Bronchitis Additional Past Medical Histor: RA Past Surgical History: No Surgical History Additional Past Surgical Histo: left shoulder, LEFT FOOT Smoking Status: Never Smoker Alcohol Use: None Drug Use: None General Adult HPI: HPI: Patient is a 50 year old male who presents with greater than 1 month history of cough with clear sputum, congestion, shortness of breath. He reports has been feeling worse over the past several days. He denies hemoptysis or purulent sputum production. He reports 2 to 3 days of fevers and chills. He reports headache, sore throat, myalgias and fatigue. He reports chest discomfort only with coughing, denies chest pressure or persistent chest pain. He denies lower extremity pain or swelling. He denies exertional dyspnea. He denies dizziness, diaphoresis, nausea, vomiting, abdominal pain. He reports that his father has the same symptoms as he does. The patient reports that he did receive a flu vaccine this year. He reports that he only received 1 dose of a COVID-vaccine in late 2019 but he did not receive the second vaccine, he has not received a booster. He was here on 01/22/2021 and had a negative COVID and influenza swab at that time. At that time, and during his ED work-up, he had an elevated D- dimer, he did not have a CT angiogram of the chest. He had an unremarkable chest x-ray. He was discharged home with oral prednisone. He reports that he is out of his Advair inhaler. He reports that he needs more albuterol nebulizer solution. He has been using his rescue inhaler more frequently today. Review of Systems: Review of Systems: Constitutional: Fevers, chills, myalgias, malaise Eyes: Denies change in visual acuity. [] HENT: Congestion, mild sore throat. Respiratory: Nonproductive cough, dyspnea, wheezing. Denies hemoptysis Cardiovascular: Denies chest pain or edema. [] GI: Denies abdominal pain, nausea, vomiting Musculoskeletal: Denies back pain or joint pain. Reports diffuse myalgias. Integument: Denies rash. [] Psychiatric: Denies depression or anxiety. [] Heart Score: C/O Chest Pain: No Risk Factors: Risk Factors: DM, Current or recent (<one month) smoker, HTN, HLP, family history of CAD, obesity. Risk Scores: Score 0 - 3: 2.5% MACE over next 6 weeks - Discharge Home Score 4 - 6: 20.3% MACE over next 6 weeks - Admit for Clinical Observation Score 7 - 10: 72.7% MACE over next 6 weeks - Early Invasive Strategies Allergies: Allergies: Allergies Coded Allergies Type Severity Reaction Last Updated Verified No Known Drug Allergies 01/22/21 No Physical Exam: PE: Constitutional: Well developed, well nourished, no acute distress, non-toxic appearance. [] HENT: Normocephalic, atraumatic, oropharynx is patent and clear, no exudate or erythema. Eyes: Conjunctiva normal, no discharge. [] Neck: Normal range of motion, no tenderness, supple, no stridor. Trachea is midline. No JVD Cardiovascular: Tachycardic, regular, +2 radial and +2 posterior tibial pulses bilaterally Lungs & Thorax: Coarse rhonchi bilaterally, no stridor. Bilateral, diffuse end expiratory wheezing noted. Frequent cough is noted. No tachypnea or retractions. He speaks in full and clear sentences. Abdomen: Abdomen is soft, nondistended, nontender to palpation Skin: Warm, dry, no erythema, no rash. [] Back: No tenderness, no CVA tenderness. [] Extremities: No tenderness, no cyanosis, no clubbing, ROM intact, no edema. No calf tenderness. Neurologic: Alert and oriented X 3, normal motor function, normal sensory function, no focal deficits noted. [] Psychologic: Affect normal, judgement normal, mood normal. [] EKG: EKG: EKG is interpreted at 0629 Rhythm is sinus tachycardia Rate is 111 bpm [place] is normal No STEMI Radiology/Procedures: Radiology/Procedures: IMAGING REPORT Signed PATIENT: ANTONY FERREIRA JACCOUNT: [id number] : 1970 LOCATION: ER AGE: 50 SEX: M EXAM STATUS: REG ER ORD. PHYSICIAN: JASVIR HEART DO REASON: cough, dyspnea PROCEDURE: PORTABLE CHEST 1V XR CHEST 1V History: Reason: cough, dyspnea / Spl. Instructions: / History: Comparison: January 22, 2021 Findings: No consolidation or pleural effusion. Normal heart size. No pneumothorax. Impression: 1. No acute cardiopulmonary process. Electronically signed by: Christiano Smith DO (03/29/2021 6:45 AM) [facility] DICTATED and SIGNED BY: CHRISTIANO SMITH DO DATE: 03/29/21 [id number] IMAGING REPORT Signed PATIENT: ANTONY FERREIRACOUNT: [id number] : 1970 LOCATION: ER AGE: 50 SEX: M EXAM STATUS: REG ER ORD. PHYSICIAN: JASVIR HEART DO REASON: dyspnea, tachycardia, elevated D dimer PROCEDURE: CT ANGIOGRAPHY CHEST CTA CHEST History: Dyspnea, tachycardia, elevated d-dimer. Rule out PE. Comparison: CTA chest 07/19/2020 Technique: CTA of the pulmonary arteries with intravenous contrast. 3-D postprocessing was performed. Findings: Pulmonary arteries: No pulmonary embolism. Aorta and great vessels: No aneurysm or dissection of the aortic arch or thoracic aorta. Thyroid: No significant abnormalities. Mediastinum and valentino: No mediastinal masses or adenopathy is seen. Esophagus: The visualized esophagus is normal. Heart: The heart is normal in size. There is no pericardial effusion. Mild left anterior descending coronary artery calcification. Airways, Lungs, Pleura: No airspace consolidation, pleural effusion or pneumothorax. Upper abdomen: Diffuse hypodensity liver compatible steatosis. Osseous structures and soft tissues: Within normal limits for age. Impression: 1. No pulmonary embolism, aortic aneurysm or aortic dissection. 2. Mild left anterior descending coronary artery calcification. 3. Hepatic steatosis ------ Exposure: One or more of the following individualized dose reduction techniques were utilized for this examination: 1. Automated exposure control 2. Adjustment of the mA and/or kV according to patient size 3. Use of iterative reconstruction technique. Electronically signed by: Jose Whiting MD (03/29/2021 9:06 AM) [facility] DICTATED and SIGNED BY: JOSE WHITING MD DATE: 03/29/21 [id number] Course & Med Decision Making: Course & Med Decision Making Pertinent Labs and Imaging studies reviewed. (See chart for details) I have discussed the findings, differential diagnosis and plan of care with the patient. He is given IV Solu-Medrol, DuoNeb treatment and p.o. Tessalon Perles for cough. CT angiogram is negative for PE, emergency department work-up is otherwise unremarkable for any acute life-threatening process. Benefits and evidence of distress or hypoxia. No indication for further invasive exams, imaging or admission at this time based on current clinical presentation. I have discussed my plan for discharge home, prednisone burst, will refill his albuterol nebulizer medication and his Advair. I recommend he contact his PCP for follow-up. Return precautions are given. He verbalized understanding. Juan Disclaimer: Juan Disclaimer: This electronic medical record was generated, in whole or in part, using a voice recognition dictation system. Departure Departure Impression: Primary Impression: Asthma exacerbation Disposition: HOME / SELF CARE / HOMELESS Condition: STABLE Referrals: UNKNOWN PCP NAME (PCP) Patient Instructions: Asthma Attacks, Prevention, Asthma, Adult Additional Instructions: Use the medication as directed. Return for severe chest pain, refractory wheezing, uncontrolled vomiting, weakness, dehydration or any other concerns. Make sure you stay well-hydrated. Please take your maintenance medication as directed. Contact your primary care doctor for routine care and for follow-up. Scripts Benzonatate (BENZONATATE) 200 Mg Capsule 1 CAP PO PRN TID PRN for cough, #20 CAP 0 Refills Prov: JASVIR HEART DO 03/29/21 Fluticasone/Salmeterol (ADVAIR 500-50 DISKUS) 1 Each Disk.w.dev 1 PUFF IH BID for asthma, #1 INHALER 1 Refill Prov: JASVIR HEART DO 03/29/21 Albuterol Sulfate (ALBUTEROL SULFATE NEB SOLN) 2.5 Mg/3 Ml Vial.neb 1 VIAL NEB PRN Q4HRS for wheezing, #50 VIAL 1 Refill Prov: JASVIR HEART DO 03/29/21 Prednisone (PREDNISONE) 50 Mg Tablet 1 TAB PO DAILY for 5 Days, #5 TAB Prov: JASVIR HEART DO 03/29/21 JASVIR HEART DO Mar 29, 2021 06:14
[2021-03-29] MEDS ORDERED: IPRATRPIUM/ALBUTEROL 0.5/2.5MG 3 ML NEBU. NEB ONE (06:30)
[2021-03-29] MEDS ORDERED: methylPREDNISolone SOD SUCC PF 125 MG/2 ML VIAL. IV ONE (06:30)
[2021-03-29] MEDS ORDERED: IV NORMAL SALINE 1000ML BAG 1,000 ML IV ONE (06:30)
--- NOTE | 2021-03-29 06:47 | RAD ---
XR CHEST 1V History: Reason: cough, dyspnea / Spl. Instructions: / History: Comparison: January 22, 2021 Findings: No consolidation or pleural effusion. Normal heart size. No pneumothorax. Impression: 1. No acute cardiopulmonary process. Electronically signed by: Christiano Smith DO (03/29/2021 6:45 AM) [facility]
--- NOTE | 2021-03-29 06:55 | EKG ---
[facility] [address] [place] [address] Test Date: 2021-03-29 Test Time: 06:28:23 Pat Name: ANTONY FERREIRA Department: Room: Gender: M Drive Thru Order Taker: : 1970 Requested By: JASVIR HEART Order Number: [id number] Reading MD: Dylan Fish Measurements Intervals [place] Rate: 111 P: 56 VT: 156 QRS: 56 QRSD: 80 T: 29 QT: 310 QTc: 425 Interpretive Statements SINUS TACHYCARDIA Electronically Signed On 04-03-2021 17:18:59 NOTCH GRINDER by Dylan Fish
[2021-03-29 07:01] LABS: BASO % 1 % (0-3); EOS # 0.3 x10^3/uL (0.0-0.7); EOS % 3 % (0-3); HEMATOCRIT 42.2 % (39.0-53.0); HEMOGLOBIN 14.3 g/dL (13.0-17.5); LYMPH # 1.7 x10^3/uL (1.0-4.8); LYMPH % 16 % (24-48); MEAN CORPUSCULAR HEMOGLOBIN 27 pg (25-35); MEAN CORPUSCULAR HGB CONC 34 g/dL (31-37); MEAN CORPUSCULAR VOLUME 80 fL (79-100); MONO # 0.7 x10^3/uL (0.0-1.1); MONO % 7 % (0-9); NEUT # 7.9 x10^3/uL (1.8-7.7); NEUT % 74 % (31-73); PLATELET COUNT 395 x10^3/uL (140-400); RED BLOOD COUNT 5.25 x10^6/uL (4.30-5.70); RED CELL DISTRIBUTION WIDTH 13.9 % (11.5-14.5); WHITE BLOOD COUNT 10.6 x10^3/uL (4.0-11.0)
[2021-03-29 07:14] LABS: CALCIUM 9.5 mg/dL (8.5-10.1); CREATININE 0.9 mg/dL (0.7-1.3); GFR 90.1
[2021-03-29 07:19] LABS: INFLUENZA A PATIENT NEGATIVE (NEGATIVE); INFLUENZA B PATIENT NEGATIVE (NEGATIVE)
[2021-03-29 07:20] LABS: ALBUMIN 3.4 g/dL (3.4-5.0); ALBUMIN/GLOBULIN RATIO 0.8 (1.0-1.7); MAGNESIUM 1.7 mg/dL (1.8-2.4); TOTAL BILIRUBIN 0.3 mg/dL (0.2-1.0); TOTAL PROTEIN 7.7 g/dL (6.4-8.2)
[2021-03-29] MEDS ORDERED: IOHEXOL 350 MG/ML 100 ML VIAL. IV ONE (08:45)
[2021-03-29] MEDS ORDERED: BENZONATATE 100 MG CAPSULE. PO ONE (08:45)
[2021-03-29] MEDS ORDERED: CONTRAST GIVEN. MC PRN (09:00)
--- NOTE | 2021-03-29 09:09 | RAD ---
CTA CHEST History: Dyspnea, tachycardia, elevated d-dimer. Rule out PE. Comparison: CTA chest 07/19/2020 Technique: CTA of the pulmonary arteries with intravenous contrast. 3-D postprocessing was performed. Findings: Pulmonary arteries: No pulmonary embolism. Aorta and great vessels: No aneurysm or dissection of the aortic arch or thoracic aorta. Thyroid: No significant abnormalities. Mediastinum and valentino: No mediastinal masses or adenopathy is seen. Esophagus: The visualized esophagus is normal. Heart: The heart is normal in size. There is no pericardial effusion. Mild left anterior descending c oronary artery calcification. Airways, Lungs, Pleura: No airspace consolidation, pleural effusion or pneumothorax. Upper abdomen: Diffuse hypodensity liver compatible steatosis. Osseous structures and soft tissues: Within normal limits for age. Impression: 1. No pulmonary embolism, aortic aneurysm or aortic dissection. 2. Mild left anterior descending coronary artery calcification. 3. Hepatic steatosis ------ Exposure: One or more of the following individualized dose reduction techniques were utilized for thi s examination: 1. Automated exposure control 2. Adjustment of the mA and/or kV according to patient size 3. Use of iterative reconstruction technique. Electronically signed by: Jose Huff MD (03/29/2021 9:06 AM) [facility]
[2021-03-29] MEDS ORDERED: PRED50TA PO (09:24)
[2021-03-29] MEDS ORDERED: BENZ200C47 PO (09:24)
[2021-03-29] MEDS ORDERED: ALBU2.5V5 NEB (09:24)
[2021-03-29] MEDS ORDERED: FLUT1DIS5 IH (09:24)
[2021-03-29 09:55] VITALS: BP 127/68
--- NOTE | 2021-03-31 14:36 | NUR ---
IP: Attempted to contact pt concerning covid results. No answer, left a voicemail to return the call.
== END 2021-03-29 09:58 | disposition home or self-care (01) ==
LOC: ER 06:02
DX: J45.901 Unspecified asthma with (acute) exacerbation (principal); Z20.822 Contact with and (suspected) exposure to COVID-19
CPT/HCPCS: 36415; 71045; 71275; 80053; 83735; 83880; 84484; 85025; 85379; 93005; 94640; 96361; 96374; 99285; J2930; J7030; Q9967; U0003; U0005

== ENCOUNTER 2021-07-08 15:09 | Emergency (ER) | payer SELFPAY ==
[~2021-07-08] VITALS: Ht 177.8 cm; Wt 109.1 kg
[~2021-07-08 15:09] MED LIST changes: +BENZ200C47 PO; +FLUT1DIS5 IH
[2021-07-08 15:33] VITALS: BP 131/94
--- NOTE | 2021-07-08 16:01 | RAD ---
XR SHOULDER_LEFT 2+ VIEWS DATE: 07/08/2021 3:54 PM INDICATION: Fall onto left shoulder, pain COMPARISON: None. FINDINGS: Bones: There is no evidence of acute fracture or dislocation. Joints: The joint spaces are normal. The acromiohumeral distance is not narrowed. Miscellaneous: No abnormal soft tissue calcifications in the shoulder. IMPRESSION: No evidence of acute fracture. Electronically signed by: Darwin Sánchez MD (07/08/2021 3:59 PM) [facility]
[2021-07-08] MEDS ORDERED: IBUPROFEN 200 MG TABLET. PO ONE (16:15)
[2021-07-08] MEDS ORDERED: HYDROcodone/APAP 5/325MG 1 TAB TABLET PO ONE (16:15)
[2021-07-08] MEDS ORDERED: CYCL10TA19 PO (16:39)
[2021-07-08] MEDS ORDERED: IBUP-1007 PO (16:39)
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
== END 2021-07-08 16:50 | disposition home or self-care (01) ==
LOC: ER 15:09
DX: S40.012A Contusion of left shoulder, initial encounter (principal); F41.9 Anxiety disorder, unspecified; M19.90 Unspecified osteoarthritis, unspecified site; J45.909 Unspecified asthma, uncomplicated; W18.39XA Other fall on same level, initial encounter; Y93.89 Activity, other specified; Y92.89 Other specified places as the place of occurrence of the external cause; Y99.8 Other external cause status
CPT/HCPCS: 73030; 99283